=== PATIENT | male | born 1995 | race Caucasian/White ===

== ENCOUNTER → 2020-05-20 | Outpatient (CLI) | payer OTHER ==
--- NOTE | 2020-05-20 14:37 | RADIOLOGY REPORT (SQ) ---
EXAM DESCRIPTION: DUPLEX ART/RUBEN FLOW COMPLETE IMAGES COMPLETED DATE/TIME: 05/20/2020 10:38 am REASON FOR STUDY: I70.1 ATHEROSCLEROSIS OF RENAL ARTERY I70.1 ATHEROSCLEROSIS OF RENAL ARTERY COMPARISON: None. TECHNIQUE: Realtime and static grayscale images acquired. Selected color Doppler, velocities and spe ctral images recorded. LIMITATIONS: None. FINDINGS: RIGHT KIDNEY: RENAL ARTERY VELOCITIES: 79 cm/sec. Segmental artery velocity 41 cm/sec. RENAL VEIN: Color doppler flow present, patent. VELOCITY RATIO: 0.74. Normal waveforms. KIDNEY: Normal size. No significant pathology. LEFT KIDNEY: RENAL ARTERY VELOCITIES: 50 cm/sec. Segmental artery velocity 32 cm/sec. RENAL VEIN: Color doppler flow present, patent. VELOCITY RATIO: 0.47. Normal waveforms. KIDNEY: Normal size. No significant pathology. BLADDER: Normal. OTHER: No other significant finding. IMPRESSION: NO DOPPLER EVIDENCE OF HEMODYNAMICALLY SIGNIFICANT RENAL ARTERY STENOSIS. COMMENT: NORMAL RENAL ARTERY/AORTA VELOCITY RATIO IS LESS THAN OR EQUAL TO 3.5. TECHNICAL DOCUMENTATION: JOB ID: [id number] [employer]- All Rights Reserved Reading location - IP/workstation name: [email or web address]
== END ==
LOC: RAD 09:07
PROVIDERS: ATTEND Family Medicine
DX: I70.1 Atherosclerosis of renal artery (principal)
CPT/HCPCS: 93975